=== PATIENT | female | born 1985 | race African-American/Black ===

== ENCOUNTER 2023-05-18 20:03 | Emergency (ER) | payer OTHER ==
[2023-05-18 20:29] VITALS: PULSE 74; RESP 16; TEMP 98.7; BMI 32.5
[2023-05-18] MEDS ORDERED: ACETAMINOPHEN 500 MG TABLET (FP) ONE (20:46)
[2023-05-18] MEDS ORDERED: LIDOCAINE 5% TOPICAL PATCH ONE (20:46)
[2023-05-18] MEDS ORDERED: LIDOCAINE 5% TOPICAL PATCH TP ONE (20:52)
[2023-05-18] MEDS ORDERED: ACETAMINOPHEN 500 MG TABLET (FP) PO ONE (20:52)
[2023-05-18 20:56] VITALS: BP 170/102
[2023-05-19] MEDS ORDERED: LIDOCAINE PATCH REMOVAL MC ONE (09:00)
== END 2023-05-18 22:23 | disposition home or self-care (01) ==
LOC: FER 20:03
DX: S00.03XA Contusion of scalp, initial encounter (principal); S30.0XXA Contusion of lower back and pelvis, initial encounter; M53.3 Sacrococcygeal disorders, not elsewhere classified; R51.9 Headache, unspecified; M54.2 Cervicalgia; W00.0XXA Fall on same level due to ice and snow, initial encounter; Y93.01 Activity, walking, marching and hiking; Y92.009 Unspecified place in unspecified non-institutional (private) residence as the place of occurrence of the external cause
CPT/HCPCS: 72220-TC-FY; 81025; 99284-25